=== PATIENT | male | born 1965 | race Caucasian/White ===

== ENCOUNTER 2017-03-09 17:04 | Emergency (ER) | payer BC, MEDICAID ==
[~2017-03-09] VITALS: Ht 193 cm; Wt 104.3 kg
[2017-03-09 17:04] VITALS: BP 152/101
[~2017-03-09 17:04] MED LIST: CYCL-343; ERGO50003; GABA-534; HYDR-3326; METO-304
== END 2017-03-09 19:36 | disposition home or self-care (01) ==
LOC: ER 17:05
DX: M54.2 Cervicalgia (principal); M25.512 Pain in left shoulder; M54.5 Low back pain; I10 Essential (primary) hypertension; Z98.890 Other specified postprocedural states; Z88.0 Allergy status to penicillin; V49.69XA Unspecified car occupant injured in collision with other motor vehicles in traffic accident, initial encounter; Y93.89 Activity, other specified; Y92.413 State road as the place of occurrence of the external cause; Y99.8 Other external cause status
CPT/HCPCS: 72100; 72125; 73030; 99284; A4606; C1751; Z7610